=== PATIENT | female | born 1965 | race Caucasian/White ===

== ENCOUNTER 2024-06-22 10:41 | Outpatient (CLI) | payer OTHER, SELFPAY | END 2024-06-22 10:42 | disposition home or self-care (01) | PROVIDERS: PCP Family Medicine; Visit Provider Family Medicine | DX: R63.5 Abnormal weight gain (principal); I10 Essential (primary) hypertension; Z13.220 Encounter for screening for lipoid disorders; Z13.29 Encounter for screening for other suspected endocrine disorder | CPT/HCPCS: 80048; 80061; 84443; 85025 ==

== ENCOUNTER 2025-03-11 08:48 | Outpatient (CLI) | payer MEDICAID, SELFPAY | END 2025-03-11 08:49 | disposition home or self-care (01) | PROVIDERS: PCP Family Medicine; Visit Provider Surgery | DX: K80.20 Calculus of gallbladder without cholecystitis without obstruction (principal) | CPT/HCPCS: 80076 ==

== ENCOUNTER 2025-03-18 06:09 | Day surgery (SDC) | payer OTHER, MEDICAID, SELFPAY ==
[2025-03-18] VITALS (20 sets, daily range): BP systolic 106–176; BP diastolic 56–96; PULSE 70–98; RESP 12–16; TEMP 36.4–36.8; O2SAT 93–100; BMI 36.8
[2025-03-18] MEDS: SODIUM CHLORIDE 0.9 % (FLUSH) 10 ML SYRINGE IVF (06:45)
[2025-03-18] MEDS: LACTATED RINGERS 1000 ML 1,000 ML 100 ML IV ×2 (06:45→09:08)
--- NOTE | 2025-03-18 07:12 | W.PM.H&PU ---
History & Physical Update History & Physical Update H&P Reviewed and patient assessed: No changes noted
[2025-03-18] MEDS: SCOPOLAMINE 1 MG/3 DAY PATCH 1 PATCH TRANSDERMA (07:26)
--- NOTE | 2025-03-18 07:40 | P.ANES_ITS ---
Anesthesia Charges Start Date/Time Anesthesia Start Date: 03/18/25 Anesthesia Start Time: 07:31 Stop Date/Time Anesthesia Stop Date: 03/18/25 Anesthesia Stop Time: 09:37 Coding CPT Codes CPT Codes: ANESTH SURG UPPER ABDOMEN - 53754 ([id number]) P2 - PATIENT W/MILD SYST DISEASE, QK - EMBEDDED SOFTWARE DEVELOPMENT ENGINEER 2-4 CNCRNT ANES PROC, QX - TROMBONE SLIDE ASSEMBLER SVC W/ MD MED DIRECTION
--- NOTE | 2025-03-18 07:40 | W.ANESCHARGE ---
Anesthesia Charges Start Date/Time Anesthesia Start Date: 03/18/25 Anesthesia Start Time: 07:31 Stop Date/Time Anesthesia Stop Date: 03/18/25 Anesthesia Stop Time: 09:37 Coding CPT Codes CPT Codes: ANESTH SURG UPPER ABDOMEN - 01743 ([id number]) P2 - PATIENT W/MILD SYST DISEASE, QK - FORENSIC BALLISTICS EXPERT 2-4 CNCRNT ANES PROC, QX - SLAT BASKET MAKER SVC W/ MD MED DIRECTION
[2025-03-18] MEDS: BUPIVACAINE 0.5% 30 ML INJECTION (09:14)
--- NOTE | 2025-03-18 09:31 | PM.GSPRC ---
Operative Note Date of procedure: 03/18/25 Pre-op diagnosis: Biliary colic Post-op diagnosis: Same Type of Procedure: Laparoscopic cholecystectomy Indications: Patient is a 59-year-old female who presented to clinic with clinical workup and symptoms consistent with biliary colic. Different treatment options were discussed, please see consultation note for full discussion. Risks and benefits of operative intervention were discussed at length with the patient. Risks included but was not limited to: Bleeding, infection, risk of damage to surrounding structures, possible need for additional procedures, possible need to convert to an open operation and postoperative complications such as pneumonia, pulmonary emboli or VT. All questions and concerns were addressed with the patient agreeing to proceed. Procedure Description: After discussing the risks and benefits of the procedure, the patient signed informed consent.? The operative site was marked and the patient was brought to the operating room and placed on the operating table in supine position.? Care was taken to pad the patient's pressure points.?? The patient was then intubated by anesthesia.?? The operative site was then prepped and draped in the usual sterile fashion.? A time-out was then performed. Entrance to the abdomen was gained via a 5 mm Visiport in the left upper quadrant. The abdomen was insufflated and briefly surveyed for signs of injury. There was none. There were a lot of adhesions within the midline, consistent with the patient's history of a laparoscopic right colectomy. Two 5 mm ports were placed on the right side under direct visualization. Adhesions within the midline were taken down sharply with scissors. An 11 mm port was placed right lateral to the umbilicus, where the abdomen was free of scar tissue. Patient was then placed in reverse Trendelenburg position with the right side up. The gallbladder fundus was grasped and retracted cephalad. Several adhesions to the gallbladder were taken down with cautery. The infundibulum was grasped. A combination of hook cautery and blunt dissection was used to carefully dissect out the cystic duct and artery. The node of Calot was identified and a clip placed on the vascular pedicle to the lymph node before being transected with cautery. Further dissection with cautery was done until only 2 structures could clearly be seen entering the gallbladder without any intervening structures. The gallbladder was dissected off the cystic plate to achieve the critical view. Once this was achieved the cystic artery was clipped with 2 clips proximally and 1 clip distally and transected with the scissors. The cystic duct had 2 clips placed proximally and 1 clip distally, a 3rd clip was placed proximally to ensure adequate closure before the cystic duct was transected with scissors sharply. The gallbladder was then taken off of the liver bed. The gallbladder wall was thickened and intrahepatic. During dissection a small tear within the gallbladder fossa into the liver was created. There was bleeding from an underlying hepatic vein. This bleeding was controlled with several 5 mm clips. Surgicel was placed within the gallbladder fossa in this area. The gallbladder was then completely removed from the liver bed. It was placed in an Endo-Catch bag and removed from the abdomen. The gallbladder bed was surveyed for hemostasis, which was excellent. I then decreased the intra-abdominal pressure to 10, with still no bleeding from within the gallbladder fossa. A small amount of bile which had spilled was suctioned from the abdomen. The 11 mm port site was closed with 0 Vicryl via the Omi-Yolanda. All other ports were removed under direct vision. The skin was closed with absorbable subcuticular suture. Instrument sponge and needle counts were correct at the end of the case. The patient was then woken and transferred to the PACU in stable condition. Findings: Inflamed gallbladder, cholelithiasis. Small tear to the liver capsule and underlying hepatic vein which was controlled via several 5 mm clips. Hemostasis excellent at the end of the procedure. Anesthesia: GETA Surgeon: Sommer Shipley MD Estimated blood loss (mL): 50 Specimen: Gallbladder Condition: stable Disposition: PACU
--- NOTE | 2025-03-18 09:41 | P.ANES_ITS ---
Anesthesia Charges Start Date/Time Anesthesia Start Date: 03/18/25 Anesthesia Start Time: 07:31 Stop Date/Time Anesthesia Stop Date: 03/18/25 Anesthesia Stop Time: 09:37 Coding CPT Codes CPT Codes: ANESTH SURG UPPER ABDOMEN - 88430 ([id number]) QX - LUBRICATING MACHINE TENDER SVC W/ MD MED DIRECTION, QY - MEDICALLY DIRECTED LUBRICATING MACHINE TENDER, P2 - PATIENT W/MILD SYST DISEASE
--- NOTE | 2025-03-18 09:41 | W.ANESCHARGE ---
Anesthesia Charges Start Date/Time Anesthesia Start Date: 03/18/25 Anesthesia Start Time: 07:31 Stop Date/Time Anesthesia Stop Date: 03/18/25 Anesthesia Stop Time: 09:37 Coding CPT Codes CPT Codes: ANESTH SURG UPPER ABDOMEN - 67437 ([id number]) QX - MENTAL HEALTH PROFESSIONAL SVC W/ MD MED DIRECTION, QY - MEDICALLY DIRECTED MENTAL HEALTH PROFESSIONAL, P2 - PATIENT W/MILD SYST DISEASE
[2025-03-18] MEDS: HYDROCODONE-ACETAMIN 5-325 MG 1 TAB PO (11:40)
[2025-03-18] MEDS: ONDANSETRON 2 MG/ML inj 4 MG IVP (13:40)
[2025-03-18] MEDS: METOCLOPRAMIDE HCL 5 MG/ML INJ 10 MG IVP (14:00)
--- NOTE | 2025-03-18 14:21 | SUR.PHASEII ---
patient had a 200cc emesis after sitting up at the side of the bed. Order for reglan obtained and given. Patient up to the bathroom after and felt much better.
== END 2025-03-18 14:22 | disposition home or self-care (01) ==
PROVIDERS: PCP Family Medicine; Visit Provider Surgery
PROC: 0FT44ZZ Resection of Gallbladder, Percutaneous Endoscopic Approach (ICD-10-PCS; CPT 47562; principal; 2025-03-18 07:30)
DX: K80.12 Calculus of gallbladder with acute and chronic cholecystitis without obstruction (principal)
CPT/HCPCS: 47562; 00790; A9270; J0330; J0665; J0690; J1100; J2250; J2371; J2405; J2704; J2710; J2765; J3010; J7120

== ENCOUNTER 2025-06-24 08:41 | Outpatient (CLI) | payer MEDICAID, SELFPAY | END 2025-06-24 08:42 | disposition home or self-care (01) | PROVIDERS: PCP Family Medicine; Visit Provider Family Medicine | DX: I10 Essential (primary) hypertension (principal) | CPT/HCPCS: 80048; 80061 ==